=== PATIENT | female | born 1995 | race Two or more races ===

== ENCOUNTER 2016-07-28 12:58 | Emergency (ER) | payer MEDICAID ==
[~2016-07-28] VITALS: Ht 152.4 cm; Wt 75.3 kg
[2016-07-28 13:28] VITALS: BP 100/56
--- NOTE | 2016-07-28 13:34 | Emergency Room Report ---
History of Present Illness General Chief Complaint: Complications Source: Patient Present Illness HPI 21-year-old female presents to emergency Department complaining of 8/10 in severity pelvic pain in addition to low back pain that radiates down into the right leg x3 days. Patient is 25 weeks . Patient denies vaginal bleeding or discharge. Denies trauma or fall. This is pt. second . Denies Fevers, chills, CP, Palpitations, LOC, AMS , dizziness, Changes in Vision, Sensation, paresthesias, or a sudden severe headache. Allergies: Coded Allergies: No Known Allergies (Unverified , 07/28/16) Patient History Past Medical History: see triage record Past Surgical History: none Pertinent Family History: none Last Menstrual Period: 02/05/16 Now: Yes - 25 weeks : 2 Para: 1 Reviewed Nursing Documentation: PMH: Agreed, PSxH: Agreed Nursing Documentation-PMH Past Medical History: No Stated History Review of Systems All Other Systems: negative except mentioned in HPI Physical Exam Vital Signs Date Time Temp Pulse Resp B/P Pulse Ox O2 Delivery O2 Flow Rate FiO2 07/28/16 13:07 97.9 101 18 100/56 99 Room Air Sp02 EP Interpretation: reviewed, abnormal - mild tachycardia at 101 Medical Decision Making PA Attestation Dr. lei is my supervising Physician whom patient management has been discussed with. Diagnostic Impression: Primary Impression: Complication of Qualified Codes: O26.90 - related conditions, unspecified, unspecified trimester Additional Impression: Abdominal pain affecting ER Course 21-year-old female presents to emergency Department complaining of 8/10 in severity pelvic pain in addition to low back pain that radiates down into the right leg x3 days. Patient is 25 weeks . Patient denies vaginal bleeding or discharge. Denies trauma or fall. This is pt. second . Ddx considered but are not limited to: Sciatica, UTI, Early Delivery, contractions, Demise, miscarriage Vital signs: Pt is mildly tachycardic in triage at 101 bpm, the remaining VS are WNL, pt. is afebrile D/w pt. that she will require FST monitoring, and that she will be transferred to appropriate facility. Physical and Pelvic Exam: Not performed pt. decided to leave AMA ORDERS: -UA: Pt. declined -Pelvic US: pt. declined ED INTERVENTIONS: None at this time. DISPOSITION: - At this time the patient is requesting to leave AGAINST MEDICAL ADVICE. I believe that this patient has the capacity to make decisions on her own. I discussed with the patient the risks of leaving AMA. Some of these risks include delay in diagnosis and treatment, as well as worsening of symptoms, organ damage, and permanent disability or even to Her or Her child. After discussing these risks with the patient. She continues to express Her want to leave AGAINST MEDICAL ADVICE. I encouraged the patient to return at any time, and that she will be welcome here in the emergency department to continue medical management. Encouraged Pt. to have FST monitoring performed. Last Vital Signs Date Time Temp Pulse Resp B/P Pulse Ox O2 Delivery O2 Flow Rate FiO2 07/28/16 13:07 97.9 101 18 100/56 99 Room Air Disposition: AGAINST MEDICAL ADVICE Condition: Unknown Referrals: NON PHYSICIAN (PCP) Kya Middleton Jul 28, 2016 13:34
== END 2016-07-28 13:33 | disposition left against medical advice (07) ==
LOC: EMR 13:28
DX: O26.892 Other specified pregnancy related conditions, second trimester (principal); Z3A.25 25 weeks gestation of pregnancy; R10.2 Pelvic and perineal pain; M54.5 Low back pain
CPT/HCPCS: 99282